=== PATIENT | male | born 2000 | race Caucasian/White ===

== ENCOUNTER 2025-06-10 16:10 | Emergency (ER) | payer BC, SELFPAY ==
[2025-06-10 16:26] VITALS: BP 137/87
--- NOTE | 2025-06-10 17:10 | ED.GENMED ---
History of Present Illness
General
Chief Complaint: Male Genito-Urinary Symptoms
Source: patient
Exam Limitations: none
Time Seen by Provider: 06/10/25 16:52
Nursing documentation reviewed up to this point in time: agreed with
History of Present Illness
History of Present Illness:
25-year-old male w Type 1 DM, presents with aching/burning pain in both testicles, he states he noticed a bruise on the left testicle this morning. He denies difficulty urinating or burning with urination.
He has taken ibuprofen for pain with no relief
He had similar symptoms a year ago, patient and mom state he has had at least 2 previous ultrasounds, was seen by urologist [facility], has had 2 rounds of antibiotics for his testicular pain in the past.
Patient states this time the pain started 3 to 4 days ago, is constant and aching.
No trauma, he does go to gym and does stationary bike but hasn't been for a few weeks.
Past History
Past History
ED Past Medical History: IDDM
ED Past Surgical History: Appendectomy
Social History
Tobacco: Non-smoker
Alcohol: None
Drug: None
Personal: Single
Living: with family
Employment: Employed
Review of Systems
Review of Systems
Allergies reviewed?: Yes
All Other Systems: ROS reviewed and negative except as documented in HPI and ROS
Phy Exam
Physical Exam
Physical Exam:
GENERAL: No acute distress. A&Ox3.
CONSTITUTIONAL: Afebrile.
EYES: clear, conjunctivae normal
ENMT: moist mucus membranes
RESPIRATORY: Regular respirations, nonlabored, lungs clear.
CARDIOVASCULAR: Regular rate and rhythm, no murmurs, no rubs.
GI: Soft, nontender, normal BS
: Normal external genitalia, circumcised, the bruise that he said he saw on his left testicle is no longer there. There are no palpable masses. Testicles are nontender. No swelling redness or warmth.
MUSCULOSKELETAL: Moves with ease. Well perfused.
SKIN: Warm, dry, pink
PSYCH: Normal mood and affect. Well kept, interactive and appropriate
NEUROLOGIC: Awake, alert and oriented. No focal neurological deficits
Course
Orders/Labs/Results
Orders:
Orders
06/10/25 16:32
US Scrotum Urgent
Comment:
Reason For Exam: pain with bruising
06/10/25 17:40
Urinalysis Reflex To Culture Urgent
Date Specimen was Collected: 06/10/25
Time Specimen was Collected: 17:31
Urine Microscopic Reflex Cult Urgent
Chlamydia/GC by PCR Urgent
SONIA Source: Urine
Specimen Description:
Source:: URINE
Date Specimen was Collected: 06/10/25
Time Specimen was Collected: 17:31
Abnormal Lab Results
06/10/25
17:40
Urine Bacteria (Reflex) Few A
(Negative)
Urine Albumin (Reflex) 1+ A
(Neg - Trace)
Vital Signs
Initial and Last Documented VS:
Initial Vital Signs
Temp Pulse BP Pulse Ox
98.7 F 107 137/87 100
06/10/25 16:26 06/10/25 16:26 06/10/25 16:26 06/10/25 16:26
Last Documented Vital Signs
Temp Pulse Resp BP Pulse Ox
98.7 F 86 18 125/76 100
06/10/25 16:26 06/10/25 17:46 06/10/25 17:46 06/10/25 17:46 06/10/25 17:46
MDM/Problems Addressed
Differential Diagnosis Includes:
Hydrocele, varicocele, torsion
MDM/Problems Addressed:
25-year-old male w Type 1 DM, presents with aching/burning pain in both testicles, he states he noticed a bruise on the left testicle this morning. He denies difficulty urinating or burning with urination.
He has taken ibuprofen for pain with no relief
He had similar symptoms a year ago, patient and mom state he has had at least 2 previous ultrasounds, was seen by urologist Rox Jeffries, has had 2 rounds of antibiotics for his testicular pain in the past.
Patient states this time the pain started 3 to 4 days ago, is constant and aching.
No trauma, he does go to gym and does stationary bike but hasn't been for a few weeks.
6:00 PM: Ultrasound radiology report read: No sonographic evidence of testicular torsion, orchitis or epididymitis. Left varicocele, small bilateral scrotal hydroceles
I copied a picture from up-to-date on hydrocele and varicocele to show the patient and explain what they were. He has previously been told that he has a small right epididymal cyst
Copy of US report given to him.
U/A neg
Plan: Since Ibuprofen not working, rx for Toradol po sent to his pharmacy
Referred to Urology.
Pt is leaving for [place] in 3 days.
*Pulse Oximetry
SaO2: 100
Oxygen Mode of Delivery: Room air
Patient hypoxic: not evaluated
*Critical Care Note
Total Time (30-74mins, 75-104mins- exclusive of procedures): Not Applicable
ED Attending Note
-
Portions of this chart may have been created with voice recognition software.� Occasional wrong word or��sound alike� substitutions may have occurred due to the inherent limitations of voice recognition software.
Discharge Plan
Departure
Patient Disposition: Home (Routine Discharge)
Date of Disposition: 06/10/25
Time of Disposition: 18:27
Patient with high blood pressure during this ER visit?: No
Condition: Good
Discharge Problem:
Testicular/scrotal pain
Instructions: Hydrocele/Varicocele (DC)
Prescriptions:
New
ketorolac 10 mg tablet
10 mg PO Q8H PRN (Reason: Pain) 2 Days Qty: 20 0RF
Referrals:
Ángel Foley MD [Active, Urology] - Next open appointment
NONE,* [Family Provider, Internal Medicine]
Activity Restrictions/Additional Instructions:
As we discussed, nothing worrisome in your evaluation here tonight.
You have a small hydrocele in the right testicle and a varicocele on the left testicle. This may cause discomfort but nothing worrisome.
Call and make an appointment with the urologist
I sent a prescription to your pharmacy for Toradol which is an analgesics/anti-inflammatory, try it and see if it helps.
No stationary bike or other activity that puts pressure on the testicles.
Interventions
Interventions:
*Risk Screen - Suicide Last Done: 06/10/25 16:32
*General Assessment Last Done: 06/10/25 17:43
*Neglect/Abuse Screening Last Done: 06/10/25 16:32
*ED- Fall Risk Assessment Last Done: 06/10/25 17:43
*ED COVID-19 Vaccine History Last Done: 06/10/25 17:43
*Nursing Disposition Last Done: 06/10/25 18:50
ED-Male Genitourinary Assessment Last Done: 06/10/25 17:43
Discharge Date and Time
Discharge Date/Time: 06/10/25 18:50
Print Language: ISRAELI
[2025-06-10 17:42] VITALS: BMI 32.6
[2025-06-10 17:46] VITALS: BP 125/76
[2025-06-10 17:53] LABS: Urine Character Clear (Clear)
[2025-06-10 18:01] LABS: Urine Red Blood Cell 0-2 /HPF (0-2); Urine Squamous Cell 0-2 /LPF (Few); Urine White Cell 0-2 /HPF (0-5)
== END 2025-06-10 18:50 | disposition home or self-care (01) ==
LOC: EMR 16:10
PROVIDERS: Registered Nurse; EMERGENCY PHYSICIAN Emergency Medicine
DX: N50.812 Left testicular pain (principal); N50.811 Right testicular pain; E10.9 Type 1 diabetes mellitus without complications; S30.22XA Contusion of scrotum and testes, initial encounter; Z90.49 Acquired absence of other specified parts of digestive tract
CPT/HCPCS: 99284; 76870; 81003; 81015; 87491; 87591; 93976